=== PATIENT | female | born 1935 | race Caucasian/White ===

== ENCOUNTER 2016-11-12 10:49 | Observation (INO) | payer MEDICARE ==
--- NOTE | ~2016-11-12 | DS ---
Unit #: [id number] #: [id number] Patient: PEDRO LUIS COLLAZO [id number] [address] [place], [place] [address] [id number] MR#: [id number] NAME: PEDRO LUIS COLLAZO ROOM: 328 Age: 81 Sex: F Admission Date: 11/12/2016 : 1935 Discharge Date: Attending Physician: Norberto Beck M.D. Primary Care Physician: [facility]. DISCHARGE SUMMARY SHORT STAY SUMMARY HISTORY OF PRESENT ILLNESS This is an 81-year-old white female who is known to Dr. Beck to have a history of hypertension and hypothyroidism. She was seen by our group in May 2015 because of dizziness and near syncope. A 24-hour Holter monitor was obtained which showed no jess arrhythmias, pauses, or high-grade AV block. The patient presented to the emergency room after a near syncopal episode. She got up feeling fine this morning. Before breakfast, she was sitting at the table and suddenly had onset where she was seeing black that "came over my eyes." She felt her heart racing and beating hard. She states this is the worse she has ever had. She denied any loss of consciousness. The symptoms lasted for three to five minutes. She reported no chest pain, nausea, or vomiting. She denied dizziness. She is usually fairly active where she has no shortness of breath or chest pain with activities. No prior cardiac testing. She was found to have probable urinary tract infection with leukocytes noted on urinalysis. Blood pressure and heart rate was normal. Electrocardiogram unremarkable. PAST MEDICAL HISTORY 1. A 24-hour Holter monitor, June 22, 2015, shows normal sinus rhythm, very rare PACs with rare PVCs. No SVT. No AV block, sinus arrest, or pauses. 2. Hypertension. 3. Hypothyroidism. 4. Lifelong nonsmoker. PAST SURGICAL HISTORY Breast surgery. SOCIAL HISTORY The patient lives at home alone. She has never smoked. She denies illicit drug and alcohol use. FAMILY HISTORY Negative for coronary artery disease. ALLERGIES Cipro, sulfa, Darvocet, amitriptyline. HOME MEDICATIONS Unit #: [id number] #: [id number] Patient: PEDRO LUIS COLLAZO 1. Metoprolol 25 mg b.i.d. 2. Levothyroxine 50 mcg daily. 3. Aspirin 81 mg daily. 4. Calcium plus D 600 mg b.i.d. 5. Travatan one drop both eyes b.i.d. 6. Artificial Tears one drop both eyes p.r.n. 7. Meclizine 25 mg q.8 hours p.r.n. REVIEW OF SYSTEMS CONSTITUTIONAL: Negative for fever or chills. Reports no weight gain or weight loss. HEENT: No headache. No visual changes, difficulty with swallowing. No dizziness. CARDIOVASCULAR: Has no symptoms of angina here. Positive for palpitations. No paroxysmal nocturnal dyspnea, orthopnea. Reports near syncope. RESPIRATORY: Negative for dyspnea, cough, or hemoptysis. GASTROINTESTINAL: No abdominal pain, nausea, vomiting. No constipation or melena. EXTREMITIES: Negative for lower extremity edema. PHYSICAL EXAMINATION VITAL SIGNS: Blood pressure 130/71, heart rate 93, temperature 97.5. GENERAL: This is a pleasant well-developed 81-year-old elderly white female who is in no acute distress. NEUROLOGIC: She is awake, alert, and oriented. There is no focal weaknesses. NECK: Trachea is midline. No thyromegaly or lymphadenopathy. No jugular venous distention. HEART: S1, S2. Heart sounds are normal. No murmurs. No rubs. No clicks. Regular rate and rhythm. No slowing of the heart rate with carotid massage. LUNGS: Clear to auscultation without rales, rhonchi, or wheezing. ABDOMEN: Soft, nontender with bowel sounds present. EXTREMITIES: Without leg edema. SKIN: Warm and dry. DIAGNOSTIC STUDIES LABORATORY: Hemoglobin 13.3, hematocrit 41.5, platelet count 214,000, white count 7.8. Sodium 138, potassium 3.8, BUN 14, creatinine 1, glucose 104. TSH 0.61. Troponin less than 0.05. Urinalysis positive for 3+ leukocytes, negative for bacteria. CARDIOVASCULAR: EKG shows normal sinus rhythm with a rate of 65 beats per minute. IMPRESSION 1. Near syncope, questionable etiology. 2. Questionable urinary tract infection with positive leukocytes with urinalysis. 3. Hypertension. 4. History of hypothyroidism. PLAN 1. The patient has no high-grade AV block, tachy or jess arrhythmias noted. EKG is unremarkable. Recent 24-hour Holter monitor showed no causes for syncope. 2. Will check cardiac enzymes and troponin. Unit #: [id number] #: [id number] Patient: PEDRO LUIS COLLAZO 3. TSH is normal. 4. Will obtain 2D echocardiogram to evaluate left ventricular systolic function. 5. Schedule for Cardiolite scan if enzymes are normal to rule out myocardial infarction. 6. The patient had a recent 24-hour Holter monitor but may need an event monitor or loop recorder if her symptoms start to reoccur. 7. Prophylactically treat for urinary tract infection. Cultures are pending. 8. Orthostatic blood pressures will be obtained. HOSPITAL COURSE The patient was seen and examined by Dr. Beck. He felt the patient could have sick sinus syndrome and tachybrady arrhythmia causing near syncope. The cause of the chest pain was unknown. She ruled out for an acute myocardial infarction. She underwent Lexiscan Cardiolite stress test which showed no stress-induced ischemia with an ejection fraction of 72%. Two-D echocardiogram showed an ejection fraction of 65% with impaired left ventricular relaxation. There was mild tricuspid regurgitation, trace mitral regurgitation and mild to moderate aortic regurgitation. TSH was normal. It was felt the patient could go home with a 24-hour Holter monitor. Heart rate and blood pressure remained stable with no orthostasis. She is stable for discharge today. FOLLOWUP Follow up with: 1. The primary care physician in two weeks. 2. Dr. Beck on December 24 at 3:30 p.m. JOB #: [id number] Dictated by... Gary Mireles A.P.R.N. for Matthew Liu/maxim TD: 11/13/2016 18:06 JOB #: [id number] DISCHARGE SUMMARY X Gary Mireles APRN X DISCHARGE SUMMARY
--- NOTE | ~2016-11-12 | TH ---
Unit #: [id number] #: [id number] Patient: PEDRO LUIS COLLAZO [id number] [address] [address] [id number] I MR#: [id number] NAME: PEDRO LUIS COLLAZO. : 1935 SEX: F STUDY DATE/TIME: 11/13/2016 UNIT: C3A PCU ROOM: [facility] STUDY DESCRIPTION: Attending Physician: Norberto Beck M.D. Primary Care Physician: [facility] CARDIOLOGY REPORT EXAM Lexiscan Cardiolite stress test, nuclear portion. PROCEDURE Using technetium 99m labeled Cardiolite, rest and stress SPECT images were obtained. Multiple SPECT images were obtained in various views including horizontal and vertical long axis and short axis views of the left ventricle. Images were obtained by gated SPECT method. The patient was administered 10.27 mCi of Cardiolite at rest. The patient was administered 31.4 mCi of Cardiolite after Lexiscan infusion was completed. On the stress images, there is normal perfusion noted. The rest images showed normal perfusion. Comparing rest and stress images, there is no stress-induced ischemia noted. The left ventricular ejection fraction was calculated to be 76%. There is no focal wall motion abnormality seen. CONCLUSION 1. No stress-induced ischemia noted. 2. The left ventricular ejection fraction is calculated to be 76%. 3. There is no focal wall motion abnormality seen. 4. Normal Lexiscan Cardiolite stress test. Dictated by... Matthew Monsivais TD: 11/13/2016 13:17 JOB #: [id number] CARDIOLOGY REPORT X Xiomara Mei MD <ELECTRONICALLY SIGNED> 03/20/17 1429 CARDIOLOGY REPORT
--- NOTE | ~2016-11-12 | ST ---
Unit #: [id number] #: [id number] Patient: PEDRO LUIS COLLAZO [id number] [address] [place], [place] [address] [id number] I MR#: [id number] NAME: PEDRO LUIS COLLAZO. : 1935 SEX: F STUDY DATE/TIME: 11/13/2016 UNIT: C3A PCU ROOM: [facility] STUDY DESCRIPTION: Attending Physician: Norberto Beck M.D. Primary Care Physician: [facility] CARDIOLOGY REPORT REASON FOR EXAM Palpitations and near syncope. FINDINGS Baseline EKG shows normal sinus rhythm, rate of 65 beats per minute. PROCEDURE Lexiscan 0.4 mg was injected per protocol followed by Cardiolite. During the testing, the patient did report complaints of shortness of breath as well as stomach cramping. Denied any complaints of chest pain. There were no changes noted to the ST segments during the infusion. There was no ectopy during the infusion. The test was stopped secondary to protocol completion. IMPRESSION 1. Negative EKG portion of Lexiscan Cardiolite. 2. No ST or T wave changes noted suggestive for ischemia. 3. The patient did complain of shortness of breath and stomach cramping during the infusion. Denied any complaints of chest pain. Her symptoms resolved in the recovery period. 4. No arrhythmias were noted. 5. Please correlate with nuclear imaging. Dictated by... Nallely Arredondo M.D. LMW/daniel TD: 11/13/2016 10:32 JOB #: [id number] CARDIOLOGY REPORT X Pili Palmer APRN CARDIOLOGY REPORT
--- NOTE | ~2016-11-12 | HM ---
Unit #: [id number] #: [id number] Patient: PEDRO LUIS COLLAZO [id number] [facility]. [address] [address] [id number] I MR#: [id number] NAME: PEDRO LUIS COLLAZO. : 1935 SEX: F STUDY DATE/TIME: 11/26/2016 UNIT: C3A PCU ROOM: [facility] STUDY DESCRIPTION: Holter monitor Attending Physician: Norberto Beck M.D. Primary Care Physician: [facility]. CARDIOLOGY REPORT EXAM [id number] Holter FINDINGS Underlying rhythm is normal sinus rhythm with an average heart rate of 67 beats per minute, minimum heart rate of 48 beats per minute and a maximum heart rate of 174 beats per minute. The minimum heart rate of 48 beats per minute is noted at 2:20 p.m. The maximum heart rate of 174 beats per minute is noted at 10:07 a.m. Patient had a 0.88 second pause noted at 12:57 p.m. Patient had 173 single multifocal premature ventricular complexes, 26 ventricular couplets and 17 ventricular bigeminy noted. Patient had 160 single premature atrial complexes and 63 atrial couplets noted. Patient had several 4-mf-48-beat runs of paroxysmal supraventricular tachycardia with heart rate ranging from 130 to 180 beats per minute. Patient did not record any symptoms. CONCLUSION 1. Underlying rhythm is normal sinus rhythm with an average heart rate of 67 beats per minute, minimum heart rate of 48 beats per minute and a maximum heart rate of 174 beats per minute. 2. No sustained atrial or ventricular arrhythmias noted. 3. No significant pauses noted. 4. Occasional single multifocal premature ventricular complex and ventricular couplet noted. 5. Patient had frequent 6-et-04-beat runs of paroxysmal supraventricular tachycardia with heart rate ranging from 130 to 180 beats per minute. 6. Patient did not record any symptoms. 7. Abnormal 24-hour Holter monitor with significant paroxysmal supraventricular tachycardia. Dictated by.Matthew Thao TD: 11/26/2016 16:46 JOB #: [id number] Unit #: [id number] #: [id number] Patient: PEDRO LUIS COLLAZO CARDIOLOGY REPORT Page 1 of 1 X Xiomara Mei MD <ELECTRONICALLY SIGNED> 03/20/17 1429 HOLTER MONITOR REPORT
--- NOTE | ~2016-11-12 | CR72 ---
[facility] A Service of [facility] RADIOLOGY TEXT RESULTS PATIENT: PEDRO LUIS COLLAZO LOCATION: [place] [address] : [birth year] UNIT #: [id number] AGE: [address]: Norberto Beck MD SEX: F ORDER DR: [id number] [facility] [address]. [place], [place] [address] [id number] I MR#: [id number] Acc #: [id number] NAME: PEDRO LUIS COLLAZO. : 1935 SEX: F STUDY DATE/TIME: 11/12/2016 10:53 UNIT: CEDOF ROOM: 507[address] STUDY DESCRIPTION: CR Chest Single View Portable Attending Physician: Norberto Beck M.D. Ordering Physician: Cruz Prince M.D. Primary Care Physician: [facility]. MEDICAL IMAGING REPORT This report is preliminary unless electronic signature is present EXAM Portable chest DATE OF STUDY 11/12/2016 COMPARISON 06/24/2016 CLINICAL HISTORY Tachycardia, palpitations, and short of air since this morning. FINDINGS The there is a hiatal hernia, and submaximal inspiration but no acute abnormality is seen. There is no consolidation or effusion or pneumothorax. Borderline cardiomegaly, but otherwise no acute findings. IMPRESSION Hiatal hernia and submaximal inspiration and borderline mild cardiomegaly, no acute abnormality. Dictated by... Vick Negrete M.D. THIS IS AN ELECTRONICALLY VERIFIED REPORT Vick Negrete M.D. at 11/13/2016 4:13 PM TEV/aa TD: 11/12/2016 16:06 JOB #: [id number] MEDICAL IMAGING REPORT [facility] A Service [facility] RADIOLOGY TEXT RESULTS PATIENT: PEDRO LUIS COLLAZO LOCATION: [facility] 328-01 : [birth year] UNIT #: [id number] AGE: [address]: Norberto Beck MD SEX: F ORDER DR: COPY
--- NOTE | ~2016-11-12 | HP ---
Unit #: [id number] #: [id number] Patient: PEDRO LUIS COLLAZO [id number] [address] [place], [place] [address] [id number] MR#: [id number] NAME: PEDRO LUIS COLLAZO ROOM: Age: 81 Sex: F Admission Date: 11/12/2016 : 1935 Attending Physician: Cruz Prince M.D. Primary Care Physician: [facility] HISTORY AND PHYSICAL HISTORY OF PRESENT ILLNESS This is an 81-year-old white female who is known to Dr. Beck to have a history of hypertension and hypothyroidism. She was seen by our group in May 2015 because of dizziness and near syncope. A 24-hour Holter monitor was obtained which showed no jess arrhythmias, pauses, or high-grade AV block. The patient presented to the emergency room after a near syncopal episode. She got up feeling fine this morning. Before breakfast, she was sitting at the table and suddenly had onset where she was seeing black that "came over my eyes." She felt her heart racing and beating hard. She states this is the worse she has ever had. She denied any loss of consciousness. The symptoms lasted for three to five minutes. She reported no chest pain, nausea, or vomiting. She denied dizziness. She is usually fairly active where she has no shortness of breath or chest pain with activities. No prior cardiac testing. She was found to have probable urinary tract infection with leukocytes noted on urinalysis. Blood pressure and heart rate was normal. Electrocardiogram unremarkable. PAST MEDICAL HISTORY 1. A 24-hour Holter monitor, June 22, 2015, shows normal sinus rhythm, very rare PACs with rare PVCs. No SVT. No AV block, sinus arrest, or pauses. 2. Hypertension. 3. Hypothyroidism. 4. Lifelong nonsmoker. PAST SURGICAL HISTORY Breast surgery. SOCIAL HISTORY The patient lives at home alone. She has never smoked. She denies illicit drug and alcohol use. FAMILY HISTORY Negative for coronary artery disease. ALLERGIES Cipro, sulfa, Darvocet, amitriptyline. HOME MEDICATIONS 1. Metoprolol 25 mg b.i.d. 2. Levothyroxine 50 mcg daily. 3. Aspirin 81 mg daily. Unit #: [id number] #: [id number] Patient: PEDRO LUIS COLLAZO 4. Calcium plus D 600 mg b.i.d. 5. Travatan one drop both eyes b.i.d. 6. Artificial Tears one drop both eyes p.r.n. 7. Meclizine 25 mg q.8 hours p.r.n. REVIEW OF SYSTEMS CONSTITUTIONAL: Negative for fever or chills. Reports no weight gain or weight loss. HEENT: No headache. No visual changes, difficulty with swallowing. No dizziness. CARDIOVASCULAR: Has no symptoms of angina here. Positive for palpitations. No paroxysmal nocturnal dyspnea, orthopnea. Reports near syncope. RESPIRATORY: Negative for dyspnea, cough, or hemoptysis. GASTROINTESTINAL: No abdominal pain, nausea, vomiting. No constipation or melena. EXTREMITIES: Negative for lower extremity edema. PHYSICAL EXAMINATION VITAL SIGNS: Blood pressure 130/71, heart rate 93, temperature 97.5. GENERAL: This is a pleasant well-developed 81-year-old elderly white female who is in no acute distress. NEUROLOGIC: She is awake, alert, and oriented. There is no focal weaknesses. NECK: Trachea is midline. No thyromegaly or lymphadenopathy. No jugular venous distention. HEART: S1, S2. Heart sounds are normal. No murmurs. No rubs. No clicks. Regular rate and rhythm. No slowing of the heart rate with carotid massage. LUNGS: Clear to auscultation without rales, rhonchi, or wheezing. ABDOMEN: Soft, nontender with bowel sounds present. EXTREMITIES: Without leg edema. SKIN: Warm and dry. DIAGNOSTIC STUDIES LABORATORY: Hemoglobin 13.3, hematocrit 41.5, platelet count 214,000, white count 7.8. Sodium 138, potassium 3.8, BUN 14, creatinine 1, glucose 104. TSH 0.61. Troponin less than 0.05. Urinalysis positive for 3+ leukocytes, negative for bacteria. CARDIOVASCULAR: EKG shows normal sinus rhythm with a rate of 65 beats per minute. IMPRESSION 1. Near syncope, questionable etiology. 2. Questionable urinary tract infection with positive leukocytes with urinalysis. 3. Hypertension. 4. History of hypothyroidism. PLAN 1. The patient has no high-grade AV block, tachy or jess arrhythmias noted. EKG is unremarkable. Recent 24-hour Holter monitor showed no causes for syncope. 2. Will check cardiac enzymes and troponin. 3. TSH is normal. 4. Will obtain 2D echocardiogram to evaluate left ventricular systolic function. Unit #: [id number] #: [id number] Patient: PEDRO LUIS COLLAZO 5. Schedule for Cardiolite scan if enzymes are normal to rule out myocardial infarction. 6. The patient had a recent 24-hour Holter monitor but may need an event monitor or loop recorder if her symptoms start to reoccur. 7. Prophylactically treat for urinary tract infection. Cultures are pending. 8. Orthostatic blood pressures will be obtained. Dictated by Gary Mireles A.P.R.N. for Matthew Liu TD: 11/12/2016 13:44 JOB #: [id number] HISTORY AND PHYSICAL X Gary Mireles APRN X HISTORY AND PHYSICAL
--- NOTE | ~2016-11-12 | EKG ---
PATIENT: PEDRO LUIS COLLAZO UNIT #: [id number] Ventricular Rate: 65 BPM Atrial Rate: 65 BPM P-R Interval: 152 ms QRS Duration: 90 ms Q-T Interval: 408 ms QTC Calculation(Bezet): 424 ms P Dunmore: -2 degrees Calculated R Dunmore: 11 degrees Calculated T Dunmore: 43 degrees Diagnosis Line: Normal sinus rhythm Diagnosis Line: Normal ECG Diagnosis Line: When compared with ECG of 24-JUN-2016 22:03, Diagnosis Line: No significant change was found Diagnosis Line: Confirmed by GRABIEL SOTO MD ([id number]) on 11/13/2016 Diagnosis Line: 12:05:03 PM INTERPRETING MD: CHARLES PANTOJA
[~2016-11-12 10:49] MED LIST: ASPIRIN EC81 M1 PO; CALCIUM CARB PO; CIPRO250 MG PO; LEVOTHROID50 MCG PO; MEDI-MECLIZINE25 M1 PO; METOPROLOL TAR25 MG PO; MULTI-VITAMIN1 EAC1 PO; PREDNISONE PO; TRAVATAN5 ML OU
[2016-11-12 10:59] LABS: BASOPHIL% 0.5 % (0-2.5); EOSINOPHIL# 0.1 X10e3 (0-0.7); EOSINOPHIL% 1.2 % (0.0-7.0); HEMATOCRIT 41.5 % (35.0-45.0); HEMOGLOBIN 13.3 gm/dL (12.0-16.0); LYMPHOCYTE# 2.1 X10e3 (1.0-3.5); LYMPHOCYTE% 26.5 % (17.0-45.0); MEAN CELL VOLUME 85.9 FL (83-96); MEAN CORPUSCULAR HEMOGLOBIN 27.6 PG (28-34); MEAN CORPUSCULAR HGB CONC 32.2 g/dL (30-36); MEAN PLATELET VOLUME 8.1 FL (6.5-11.5); MONOCYTE# 0.5 X10e3 (0-1.0); MONOCYTE% 6.3 % (3.0-12.0); NEUTROPHIL# 5.1 X10e3 (1.5-7.1); NEUTROPHIL% 65.5 % (40-75); PLATELET COUNT 214 X10e3 (140-420); RED BLOOD COUNT 4.83 X10e (3.90-5.30); RED CELL DISTRIBUTION WIDTH 13.4 % (11.0-15.5); WHITE BLOOD COUNT 7.8 X10e3 (4.0-10.5)
[2016-11-12 11:00] LABS: POC - CKMB <1.0 ng/mL (0.0-7.9); POC - TROPONIN <0.05 ng/mL (<=0.05)
[2016-11-12 11:02] LABS: DIFF IND NO
[2016-11-12 11:15] LABS: PROTHROMBIN TIME (PATIENT) 10.4 SECONDS (9.6-11.5)
[2016-11-12 11:30] LABS: BILIRUBIN, DIRECT 0.1 mg/dL (0.0-0.2); BILIRUBIN,INDIRECT 0.4 mg/dL (0.0-0.9); BILIRUBIN,TOTAL 0.5 mg/dL (0.2-2.0); CALCIUM SERUM 9.5 mg/dL (8.4-10.2); GLOM FILT RATE Estimated 56.6 mL/min (>60); POTASSIUM 3.8 mmol/L (3.5-5.1); PROTEIN TOTAL SERUM 7.5 g/dL (6.0-8.3)
[2016-11-12 11:54] LABS: URINE SOURCE CLEAN CATCH
[2016-11-12 12:04] LABS: URINE APPEARANCE CLEAR; URINE BILIRUBIN NEG (NEG); URINE BLOOD TRACE (NEG); URINE COLOR YELLOW; URINE GLUCOSE NEG (NEG); URINE KETONE NEG (NEG); URINE NITRATE NEG (NEG); URINE PROTEIN NEG (NEG); URINE SPECIFIC GRAVITY 1.006 (1.003-1.035); URINE UROBILINOGEN 0.2 MG/DL (NEG)
[2016-11-12 12:06] LABS: URBCS1 AUWI 0-2 /[HPF] (0-2); URINE SQUAMOUS EPITHELIAL CELL OCC /[HPF]
[2016-11-12 12:17] LABS: CULTURE INDICATED? YES; URINE BACTERIA AUWI 1+ (NEGATIVE); URINE LEUKOCYTE ESTERASE 3+ (NEG); UWBCS1 AUWI 0-2 (0-5)
[2016-11-12] MEDS ORDERED: METOPROLOL PO (12:32)
[2016-11-12] MEDS ORDERED: LEVOTHYROXINE50 MCG PO (12:33)
[2016-11-12] MEDS ORDERED: ASPIRIN EC81 M1 PO (12:33)
[2016-11-12] MEDS ORDERED: CALCIUM + D 6001 TA1 PO (12:33)
[2016-11-12] MEDS ORDERED: ARTIFICIAL TEAR1 DRP OU (12:35)
[2016-11-12] MEDS ORDERED: TRAVATAN OU (12:35)
[2016-11-12] MEDS ORDERED: MECLIZINE HCL25 M1 PO (12:36)
[2016-11-12 16:57] LABS: CK TOTAL 53 IU/L (26-140)
[2016-11-12 23:19] LABS: %MB 3.1 % (0.0-4.0); MB 2.1 ng/ml
[2016-11-13 06:42] LABS: CHOLESTEROL 157 mg/dL (0-200); HDL CHOLESTEROL 53 mg/dL (35-95); LDL CHOLESTEROL 94 mg/dL (-130); LDL/HDL RATIO 2 RATIO (0-4); TRIGLYCERIDES 48 mg/dL (10-160)
[2016-11-13] MEDS ORDERED: MECLIZINE HCL25 M1 PO (15:41)
== END 2016-11-13 18:37 | disposition home or self-care (01) ==
LOC: CED 10:49 → CEDOF 12:55 → C3A PCU 17:34
PROVIDERS: Emergency Medicine; Internal Medicine Cardiovascular Disease
DX: R55 Syncope and collapse (principal); I10 Essential (primary) hypertension; R82.99 Other abnormal findings in urine; I08.2 Rheumatic disorders of both aortic and tricuspid valves; Z86.39 Personal history of other endocrine, nutritional and metabolic disease; K44.9 Diaphragmatic hernia without obstruction or gangrene; F41.9 Anxiety disorder, unspecified; Z88.1 Allergy status to other antibiotic agents; Z88.2 Allergy status to sulfonamides; Z88.8 Allergy status to other drugs, medicaments and biological substances; Z79.82 Long term (current) use of aspirin
CPT/HCPCS: 36415; 71010; 78452; 80048; 80061; 80076; 81003; 82550; 82553; 84443; 84484; 85025; 85610; 87086; 93005; 93017; 93225; 93226; 93306; 96365; 96372; 99285; A9500; G0378; J0696; J1650; J2785

== ENCOUNTER → 2017-02-25 | Outpatient (CLI) | payer MEDICARE, OTHER ==
[~2017-02-25] MED LIST changes: +ARTIFICIAL TEAR1 DRP OU; +CALCIUM + D 6001 TA1 PO; +LEVOTHYROXINE50 MCG PO; +MECLIZINE HCL25 M1 PO; +METOPROLOL PO; +TRAVATAN OU
--- NOTE | ~2017-02-25 | US37 ---
[facility] A Service of [facility] RADIOLOGY TEXT RESULTS PATIENT: PEDRO LUIS COLLAZO LOCATION: [facility] : 35 UNIT #: [id number] AGE: [address]: Carly Deluca APRN SEX: F ORDER DR: [id number] [facility] [address]. [place], [place] [address] [id number] MR#: [id number] Acc #: [id number] NAME: PEDRO LUIS COLLAZO. : 1935 SEX: F STUDY DATE/TIME: 02/25/2017 15:04 UNIT: CNIV ROOM: STUDY DESCRIPTION: US Carotid W/Doppler Bilateral Attending Physician: Carly Deluca Referring Physician: Carly Deluca Ordering Physician: Hussain Deluca Aprn Primary Care Physician: [facility] MEDICAL IMAGING REPORT This report is preliminary unless electronic signature is present EXAM Bilateral carotid Doppler ultrasound, 02/25/2017 HISTORY Hypertension and carotid stenosis. Dizziness for several months with fainting. Loss of balance of memory loss for 6 months. COMPARISON None. FINDINGS Real-time, banuelos-scale, color Doppler spectral Doppler imaging was performed of the bilateral cervical carotid arteries. Estimated stenosis was based on standard NASCET methodology. There is mild atherosclerotic plaquing within the right common carotid artery. Mild soft plaquing is demonstrated in the proximal internal and external carotid arteries. Peak systolic velocity within the right internal carotid artery proximal segment at 53.7 cm/sec, mid segment 48.4 cm/sec, distal segment 31.7 cm/sec, indicating less than 50% luminal stenosis by NASCET methodology. Right external carotid artery was patent. Right vertebral artery is patent with antegrade flow. There is mild intimal hyperplasia or calcific atherosclerosis in the left common carotid artery. Minimal intimal hyperplasia in the proximal left internal carotid artery. Mild atherosclerotic disease of the proximal left external carotid artery. Left internal carotid artery peak systolic velocity proximal segment 61.2 cm/sec, mid segment 67.4 cm/sec, distal segment 60.7 cm/sec, indicating [facility] A Service of [facility] RADIOLOGY TEXT RESULTS PATIENT: PEDRO LUIS COLLAZO LOCATION: [facility] #: [id number] : 35 UNIT #: [id number] AGE: [address]: Carly Deluca APRN SEX: F ORDER DR: less than 50% luminal stenosis based on NASCET methodology. Left vertebral artery is patent with antegrade flow. IMPRESSION 1. Only mild atherosclerotic plaquing is demonstrated within the bilateral common carotid arteries and internal carotid arteries. There is less than 50% luminal stenosis in the bilateral internal carotid arteries based on NASCET methodology. 2. Patency and antegrade flow of the bilateral vertebral arteries. Dictated by... Lesa Rodgers M.D. THIS IS AN ELECTRONICALLY VERIFIED REPORT Lesa Rodgers M.D. at 02/26/2017 9:37 PM Lazara TD: 02/26/2017 04:48 JOB #: [id number] MEDICAL IMAGING REPORT Page 1 of 1 COPY
== END | disposition home or self-care (01) ==
LOC: CNIV 14:48
DX: R42 Dizziness and giddiness (principal); I65.23 Occlusion and stenosis of bilateral carotid arteries
CPT/HCPCS: 93880